=== PATIENT | male | born 1975 | race Caucasian/White ===

== ENCOUNTER 2021-05-19 04:05 | Emergency (ER) | payer MEDICAID ==
[~2021-05-19] VITALS: Ht 182.9 cm; Wt 114.0 kg
[2021-05-19] MEDS ORDERED: LORAZEPAM 2MG/ML CPJ IM ONE ×2 (05:00→13:00)
[2021-05-19 05:01] LABS: BASOPHILS % 0.4 % (0.0-2.0); EOSINOPHILS % 1.8 % (0.0-5.0); HEMATOCRIT. 46.5 % (36.0-48.0); HEMOGLOBIN. 15.9 g/dL (12.0-16.0); LYMPHOCYTES % 27.2 % (20.0-50.0); MEAN CORPUSCULAR HEMOGLOBIN 31.5 pg (28.0-32.0); MEAN CORPUSCULAR VOLUME 91.7 fL (81.0-99.0); MEAN PLATELET VOLUME 6.9 fl (7.4-10.4); MONOCYTES % 10.7 % (2.0-8.0); NEUTROPHILS % 59.9 % (40.0-76.0); PLATELET 258 x1000/uL (130-400); RED BLOOD CELL COUNT 5.07 mill/uL (4.2-5.4); RED CELL DISTRIBUTION WIDTH 13.6 % (11.6-14.6)
[2021-05-19 05:07] LABS: CHLORIDE 105 mEq/L (98-107)
[2021-05-19 05:14] LABS: ETHANOL BLOOD 278 mg/dL
[2021-05-19 05:37] LABS: CLARITY URINE CLEAR (CLEAR); COLOR URINE YELLOW (YELLOW); KETONES URINE NEGATIVE (NEGATIVE); LEUKOCYTE ESTERASE URINE NEGATIVE (NEGATIVE); NITRITE URINE NEGATIVE (NEGATIVE); OCCULT BLOOD URINE NEGATIVE (NEGATIVE); PH URINE 5.5 (4.5-8.0); PROTEIN URINE NEGATIVE (NEGATIVE); SPECIFIC GRAVITY URINE 1.009 (1.005-1.030); UROBILINOGEN URINE 0.2 E.U./dL (0.2-1.0)
[2021-05-19 05:48] LABS: *AMPHETAMINES SCREEN URINE NEGATIVE (NEGATIVE); *BARBITURATES SCREEN URINE NEGATIVE (NEGATIVE); *BENZODIAZEPINES SCREEN URINE NEGATIVE (NEGATIVE)
[2021-05-19 05:49] LABS: METHADONE URINE SCREEN NEGATIVE (NEGATIVE); OPIATES URINE SCREEN NEGATIVE (NEGATIVE); PHENCYCLIDINE URINE SCREEN NEGATIVE (NEGATIVE)
[2021-05-19 06:07] LABS: *COCAINE SCREEN URINE PRESUMTIVE POSITIVE (NEGATIVE); CANNABINOID URINE SCREEN PRESUMTIVE POSITIVE (NEGATIVE)
[2021-05-19] MEDS: HYDROXYZINE 25MG TABLET PO SCH (15:21)
[2021-05-19] MEDS: FLUOXETINE HCL 10 MG CAPSULE PO SCH (15:21)
[2021-05-19] MEDS: DIVALPROEX SODIUM 500MG DR TABLET PO SCH ×2 (15:21→22:01)
[2021-05-19] MEDS ORDERED: DIVALPROEX SODIUM 500MG ER TABLET PO SCH (21:00)
[2021-05-20] MEDS ORDERED: LORAZEPAM 1MG TABLET PO ONE ×2 (01:00→14:45)
[2021-05-20] MEDS: FLUOXETINE HCL 10 MG CAPSULE PO SCH (09:39)
[2021-05-20] MEDS: HYDROXYZINE 25MG TABLET PO SCH ×2 (09:39→21:11)
[2021-05-20] MEDS: DIVALPROEX SODIUM 500MG DR TABLET PO SCH ×2 (09:40→21:11)
[2021-05-21] MEDS: FLUOXETINE HCL 10 MG CAPSULE PO SCH (10:32)
[2021-05-21] MEDS: DIVALPROEX SODIUM 500MG DR TABLET PO SCH ×2 (10:32→22:00)
[2021-05-21] MEDS: HYDROXYZINE 25MG TABLET PO SCH ×2 (10:33→22:00)
[2021-05-21] MEDS ORDERED: LORAZEPAM 1MG TABLET PO ONE (18:45)
[2021-05-22 06:30] VITALS: BP 121/81
== END 2021-05-22 06:43 | disposition home or self-care (01) ==
LOC: ER 04:05 → EDSEX 04:05 → ER 05-22 06:43
DX: R45.851 Suicidal ideations (principal); F33.3 Major depressive disorder, recurrent, severe with psychotic symptoms; R46.2 Strange and inexplicable behavior; Z20.822 Contact with and (suspected) exposure to COVID-19; Z75.1 Person awaiting admission to adequate facility elsewhere
CPT/HCPCS: 36415; 80048; 80076; 80305; 80307; 80320; 80329; 81003; 85025; 87426; 96372; 99285; J2060; G0480